=== PATIENT | female | born 1995 | race American Indian/Alaskan Native ===

== ENCOUNTER 2017-10-04 01:56 | Emergency (ER) | payer MEDICAID | END 2017-10-04 03:30 | disposition left against medical advice (07) | LOC: ED 01:56 | DX: R42 Dizziness and giddiness (principal); Z53.21 Procedure and treatment not carried out due to patient leaving prior to being seen by health care provider ==

== ENCOUNTER 2017-12-16 09:52 | Emergency (ER) | payer MEDICAID ==
[2017-12-16 11:07] VITALS: BP 114/63
--- NOTE | 2017-12-16 12:31 | Emergency Department Report ---
ED Headache HPI - General Chief Complaint: Headache Stated Complaint: HEADACHE Time Seen by Provider: 12/16/17 12:10 Source: patient - History of Present Illness Initial Comments: Patient is 22 years old female with no significant past medical history. Patient presented to the ER complaining of headache that started in August on and off since then. She denied any history of headache before that. Patient denied any history of migraine before or family history of migraine. She denied any fever, neck pain or stiffness. Patient denied any weakness, numbness or tingling sensation. No bowel or bladder incontinence. Allergies/Adverse Reactions: Allergies No Known Allergies Allergy (Unverified 04/28/14 13:06) Home Medications: Ambulatory Orders Nitrofurantoin Mathews/M-Cryst [Macrobid] 100 mg PO Q12HR #20 capsule 04/28/14 Ondansetron [Zofran Odt] 4 mg PO Q8HR #12 tab.rapdis 04/28/14 ED Review of Systems ROS: Stated complaint: HEADACHE Other details as noted in HPI Comment: All other systems reviewed and negative Constitutional: denies: chills, fever Respiratory: denies: cough, orthopnea, shortness of breath, SOB with exertion, SOB at rest Cardiovascular: denies: chest pain, palpitations Gastrointestinal: denies: abdominal pain, nausea, vomiting, diarrhea, constipation, hematemesis Musculoskeletal: denies: back pain Neurological: headache. denies: weakness, numbness, paresthesias, confusion, abnormal gait, vertigo ED Past Medical Hx - Past Medical History Hx Hypertension: No Hx Congestive Heart Failure: No Hx Diabetes: No Hx Deep Vein Thrombosis: No Hx Renal Disease: No Hx Sickle Cell Disease: No Hx Seizures: No Hx Psychiatric Treatment: (schizophrenic, ADHD) Hx Asthma: No Hx COPD: No Hx HIV: No - Surgical History Past Surgical History?: No - Social History Smoking Status: Never Smoker Substance Use Type: Marijuana - Medications Home Medications: Home Medications Medication Instructions Recorded Confirmed Last Taken Type Nitrofurantoin Mathews/M-Cryst 100 mg PO Q12HR #20 capsule 04/28/14 12/01/14 Unknown Rx [Macrobid] Ondansetron [Zofran Odt] 4 mg PO Q8HR #12 tab.rapdis 04/28/14 12/01/14 Unknown Rx ED Physical Exam - General Limitations: No Limitations General appearance: alert, in no apparent distress - Head Head exam: Present: atraumatic, normocephalic, normal inspection - ENT ENT exam: Present: other (bilateral maxillary sinus tenderness) - Neck Neck exam: Present: normal inspection, full ROM. Absent: tenderness, meningismus, lymphadenopathy, thyromegaly - Respiratory Respiratory exam: Present: normal lung sounds bilaterally. Absent: respiratory distress, wheezes, rales, rhonchi, chest wall tenderness, accessory muscle use, decreased breath sounds, prolonged expiratory - Cardiovascular Cardiovascular Exam: Present: regular rate, normal rhythm, normal heart sounds - GI/Abdominal GI/Abdominal exam: Present: soft, normal bowel sounds. Absent: distended, tenderness, guarding, rebound, rigid, organomegaly, mass, bruit, pulsatile mass - Extremities Exam Extremities exam: Present: normal inspection, full ROM, normal capillary refill - Back Exam Back exam: Present: normal inspection, full ROM. Absent: CVA tenderness (L) - Neurological Exam Neurological exam: Present: alert, oriented X3, CN II-XII intact, normal gait - Skin Skin exam: Present: warm, intact, normal color ED Course Vital Signs 12/16/17 11:03 Temperature 98 F Pulse Rate 66 Respiratory 16 Rate Blood Pressure 114/63 O2 Sat by Pulse 100 Oximetry ED Medical Decision Making - Radiology Data Radiology results: report reviewed CT brain showed no acute brain abnormalities. Positive for acute sinusitis Critical care attestation.: If time is entered above; I have spent that time in minutes in the direct care of this critically ill patient, excluding procedure time. ED Disposition Clinical Impression: Headache, Sinusitis Disposition: - TO HOME OR SELFCARE Is pt being admited?: No Condition: Stable Instructions: Acute Bacterial Rhinosinusitis (ED), Acute Headache (ED) Referrals: Eric MISHRA [Other] - 3-5 Days
[2017-12-16 14:22] LABS: HCG Qualitative,Urine Negative (Negative)
--- NOTE | 2017-12-16 15:17 | Cat Scan Report ---
CT HEAD WITHOUT CONTRAST: HISTORY: Head ache. TECHNIQUE: Sequential 2.5mm CT images. COMPARISON: none. FINDINGS: Cerebral Parenchyma: Within normal limits. Cerebellum: Within normal limits. Brainstem: Within normal limits. Ventricles: Normal. Sella: Normal. Extra-axial spaces: Normal. Basal Cisterns: Normal. Intracranial Hemorrhage: None. Midline Shift: None. Calvarium: Normal. Sinuses: There is moderate mucosal thickening throughout the frontal sinuses, ethmoid air cells and left maxillary sinus. Trace fluid is identified in the left maxillary sinus. Mastoid Air Cells: Normal. Visualized Orbits: Normal. IMPRESSION: Cranial CT scan within normal limits. Sinusitis findings as described above. Correlate for acute symptoms.
[2017-12-16] MEDS ORDERED: TORADOL IM ONE (16:10)
== END 2017-12-16 16:26 | disposition home or self-care (01) ==
LOC: ED 09:52
DX: J32.0 Chronic maxillary sinusitis (principal); F12.10 Cannabis abuse, uncomplicated
CPT/HCPCS: 70450; 81025; 96372; 99284; J1885

== ENCOUNTER 2022-02-01 20:31 | Emergency (ER) | payer MEDICAID ==
[2022-02-01 21:05] VITALS: BP 132/61
== END 2022-02-01 23:00 | disposition left against medical advice (07) ==
LOC: ED 20:31
DX: N89.8 Other specified noninflammatory disorders of vagina (principal); Z53.21 Procedure and treatment not carried out due to patient leaving prior to being seen by health care provider